=== PATIENT | male | born 1995 | race African-American/Black ===

== ENCOUNTER 2019-11-19 15:20 | Emergency (ER) | payer SELFPAY ==
[~2019-11-19] VITALS: Ht 188 cm; Wt 73.5 kg
[2019-11-19 15:21] VITALS: BP 125/81
== END 2019-11-19 16:59 | disposition left against medical advice (07) ==
LOC: M ED 15:20
DX: Z53.29 Procedure and treatment not carried out because of patient's decision for other reasons (principal)

== ENCOUNTER 2020-11-25 14:12 | Emergency (ER) | payer MEDICAID, OTHER, SELFPAY ==
[~2020-11-25] VITALS: Ht 188 cm; Wt 79.1 kg
--- NOTE | 2020-11-25 15:07 | REP ---
INDICATION: laceration fourth and fifth digits COMPARISON: None. TECHNIQUE: AP, lateral, bilateral oblique views right 4th and 5th digits. FINDINGS: The osseous structures and joint spaces are intact and normal. There is no evidence for acute fracture or dislocation. Surrounding soft tissues are unremarkable. No subcutaneous emphysema or radiodense foreign body. IMPRESSION: No obvious bony involvement/injury.. <Electronically signed by Loi Alvarado > 11/25/20 0527
[2020-11-25] MEDS ORDERED: LIDOCAINE 1% MDV 20ML VIAL SC ONE (15:45)
[2020-11-25] MEDS ORDERED: KEFL500C17 PO (15:48)
[2020-11-25] MEDS ORDERED: CEPHALEXIN 500 MG CAP PO ONE (16:15)
[2020-11-25 16:29] VITALS: BP 116/78
== END 2020-11-25 16:35 | disposition home or self-care (01) ==
LOC: M ED 14:12
DX: S66.124A Laceration of flexor muscle, fascia and tendon of right ring finger at wrist and hand level, initial encounter (principal); S66.126A Laceration of flexor muscle, fascia and tendon of right little finger at wrist and hand level, initial encounter; W26.0XXA Contact with knife, initial encounter; Y92.099 Unspecified place in other non-institutional residence as the place of occurrence of the external cause; Y93.G1 Activity, food preparation and clean up; Y99.9 Unspecified external cause status; F12.10 Cannabis abuse, uncomplicated; Z91.012 Allergy to eggs

== ENCOUNTER 2022-08-29 12:29 | Emergency (ER) | payer SELFPAY, OTHER ==
[~2022-08-29 12:29] MED LIST: KEFL500C17 PO
[2022-08-29] MEDS ORDERED: IBUPROFEN 600MG TAB PO ONE (13:15)
[2022-08-29] MEDS ORDERED: ACETAMINOPHEN TAB 650MG DOSE (2X325MG) PO ONE (13:20)
[2022-08-29 13:45] LABS: RSV AMPLIFICATION NEGATIVE (NEGATIVE)
[2022-08-29 14:37] VITALS: BP 123/58
== END 2022-08-29 14:56 | disposition home or self-care (01) ==
LOC: M ED 12:29
DX: U07.1 COVID-19 (principal); Z91.012 Allergy to eggs